=== PATIENT | female | born 1970 | race Caucasian/White ===

== ENCOUNTER → 2017-04-30 | Day surgery (SDC) | payer OTHER ==
[2017-04-30] VITALS (13 sets, daily range): BP systolic 112–120; BP diastolic 56–74; PULSE 65–83; RESP 9–18; O2SAT 95–100
[~2017-04-30] VITALS: Ht 176.5 cm; Wt 96.9 kg
[~2017-04-30] MED LIST: BUPR150T12 PO; Bupivacaine-MPF 0.5% W/EPI 30 mL Inj INJ ONE; CHOL200047 PO; CLIN60LO2 TP; CeFAZolin Inj 2 GM in IV Premix 1 EACH IV ONE; Dexamethasone 4 mg/mL Inj IVPUSH PRN; Dexamethasone 4 mg/mL Inj ONE; EPHEDrine Sulfate 50 mg/mL Inj IVPUSH PRN; EPHEDrine/NS 5 mg/mL 5 mL Syringe ONE; FLUC100T4 PO; HYDR-3740 PO; LEVO50TA6 PO; Lactated Ringer's 1,000 ML IV SCH; Lactated Ringer's 500 ML IV PRN; Lidocaine PF 1% 30 mL Inj INJ ONE; MetoCLOpramide 5 mg/mL 2 mL Inj IVPUSH PRN; Ondansetron 2 mg/mL 2 mL Inj IVPUSH PRN; Ondansetron 2 mg/mL 2 mL Inj ONE; Phenylephrine 10,000 mCg/mL Inj IVPUSH PRN; Propofol 10,000 mCg/mL 20 mL Inj ONE; RANI150T11 PO; ZOV800 PO; fentaNYL-PF 50 mCg/mL 2 mL Inj IVPUSH PRN; fentaNYL-PF 50 mCg/mL 2 mL Inj ONE; fibercon
[2017-04-30] MEDS: Lactated Ringer's 1,000 ML IV SCH ×3 (09:23→13:20)
--- NOTE | 2017-04-30 09:43 | PCM.HPANE ---
Patient Data Date of Service: Apr 30, 2017 Surgeon Admitting Provider: Attending Provider:Marta Colbert DPM Primary Care Physician:Larisa Armstrong Other Provider:Reginaldo Hearn Anesthesia Reason for Visit Contracture Of Joint Left Foot Ht/WT & BMI Height (Feet): 5 Height (Inches): 9.5 Weight (Kilograms): 95.25 Body Mass Index 30.00 Allergies Coded Allergies: No Known Allergies (Verified Allergy, Unknown, 08/02/16) Past Anesthesia History Anesthesia History: Denies:: Abnormal Airway, Anesthesia Reactions, Difficult Intubation, Fam Anesthesia Reaction, Malignant Hyperthermia Diabetes History Hx Diabetes?: No MRSA MRSA: No Medications Hypertension Medication: No Home Meds Incl Beta Gonsalo: No Reported Medications Ranitidine (Zantac)150 Mg Fetdqj021 Mg PO DAILY 04/23/17 Cholecalciferol (Vitamin D3) (Vitamin D3)2,000 Unit Capsule2,000 Unit PO DAILY 04/23/17 Levothyroxine 50 Mcg Hbnsmm34 Mcg PO DAILY Ref 0 04/23/17 Hydrocodone-Acetaminophen 10-325 mg 1 Each Tablet1 Tablet PO Q6H PRN For Pain Ref 0 04/23/17 Fluconazole 100 Mg Cjnsbz722 Mg PO WEEKLY Ref 0 04/23/17 [fibercon] No Conflict Dcvhv996 Mg DAILY 04/23/17 Clindamycin Phosphate (Clindamycin Phosphate Topical)60 Ml Lotion1 Applic TP BID #60 ML Ref 0 04/23/17 Bupropion ER 150 Mg Tablet.er150 Mg PO BID Ref 0 04/23/17 Acyclovir 800 Mg Cli921 Mg PO Q4H PRN outbreak Ref 0 for 10 day course 04/23/17 Discontinued Reported Medications Ranitidine (Zantac)150 Mg Vwljrx682 Mg PO DAILY 02/01/17 Bupropion ER (Wellbutrin SR)150 Mg Tablet.er150 Mg PO BID Ref 0 02/01/17 Diclofenac Gel (Voltaren Gel)100 Gm Tube1 Applic TOPICAL PRN For Pain #1 TUBE 02/01/17 Cholecalciferol (Vitamin D3) (Vitamin D3)2,000 Unit Tablet2,000 Unit PO DAILY 02/01/17 Triamcinolone Acet (Triamcinolone Acetonide Cream)1 Applic/0.25 Gm Cr1 Applic EXT BID #60 GM Ref 0 02/01/17 Pregabalin (Lyrica)225 Mg Hqyjjat255 Mg PO BID 30 Days Ref 0 02/01/17 Levothyroxine 50 Mcg Vwduhc03 Mcg PO DAILY Ref 0 02/01/17 Fluconazole 150 Mg Fmtxwr310 Mg PO ONCE #1 TABLET Ref 0 02/01/17 [fibercon] No Conflict Euiwg261 Mg DAILY 02/01/17 Duloxetine (Cymbalta)20 Mg Dytxvuc16 Mg PO DAILY Ref 0 02/01/17 Clobetasol Propionate/Emoll (Clobetasol Emollient 0.05% Crm)15 Gm Cream..g.1 Appl TOP BID #1 TUBE 02/01/17 Clindamycin Phosphate (Clindamycin Phosphate Topical)60 Ml Lotion1 Applic TP BID #60 ML Ref 0 02/01/17 Acyclovir 800 Mg Hjl151 Mg PO Q4H PRN outbreak Ref 0 for 10 day course 02/01/17 Buspirone 10 Mg Skhuwh42 Mg PO DAILY Ref 0 02/01/17 History History of ENT Problems?: Yes HEENT History: Positive for:: Sinus Problem (environmental allergies) Denies:: Abnormal Airway Cataracts Difficult Intubation Glaucoma Hearing Problem Denture Type: None Teeth Condition: Within Normal Limits Hx of Heart Problems?: No Cardiovascular History: Denies:: Congestive Heart Failure Heart Murmur Hypertension Valvular Heart Disease Hx of Respiratory Problem?: Yes Respiratory History: Positive for:: Asthma (mild-intermittent) Dyspnea ([place]) Use of C-PAP Machine Use of Inhalers / NEBS Denies:: Oxygen Administration Pneumonia Tuberculosis Hx Neurologic Problems?: No Neurological History: Positive for:: Headaches (rarely) Denies:: CVA Dementia Multiple Sclerosis Parkinson's Disease Seizures Hx of GI Problems?: No Hx of Problems?: No Genitourinary History: Denies:: Kidney Stones Urinary Tract Infection HX of Peritoneal Dialysis: No Female Hx: Denies:: Currently (hx of tubal) Problems with Breasts? Skin History: Positive for:: History Skin Disorders? (nevus right great toe- current admission problem) Denies:: Pressure Ulcers Hx Musculoskeletal Problems?: Yes Musculoskeletal History: Positive for:: Fibromyalgia Musculoskeletal Trauma (left foot contracture current admission problem, ) Osteoarthritis Denies:: Back Injury Joint Replacement Rheumatoid Arthritis Hx of Psycho/Social Problems?: Yes Psycho Social History: Positive for:: Anxiety Hx Depression Hx Surgeries?: Yes (DX LAP X2,C/S X2,BTL,LT FOOT RPR,LT FOOT HDWRE REMOVAL) Hx Any Other Health Problems?: Yes Other History: Positive for:: Thyroid Disease Denies:: Cancer Endocrine Disease Hospitalization History Blood Transfusions: Positive for:: Accept Blood Products? Denies:: Blood Transfusions Hx Diabetes: No Hx Alcohol Use: NoHx Substance Use: No Smoking Status: Never Smoker Have You Smoked inLast 12 mo: No Stop/Bang Treated for Sleep Apnea?: Yes Do You Have a CPAP Machine?: Yes P-Blood Pressure: treated: Yes B- Body Mass Index > 35 kg/m2: No A- Age over 50: Yes N- Neck Large Circumference: No G- Gender Male: No DAILY Risk Assessment: High Risk, =/>3 Yes Risk Assessment Category Category 1A: Patient has history of documented sleep apnea, and HAS NOT received any narcotic, sedative or anesthesia administration during this stay. Category 1B: Patient has history of documented sleep apnea, and HAS received any narcotic , sedative or anesthesia administration during this stay Category 2: Patient has SUSPECTED Obstructive Sleep Apnea, and HAS received any narcotic , sedative or anesthesia administration during this stay. Category 3: Patient has SUSPECTED Obstructive Sleep Apnea and HAS NOT received narcotic, sedative or anesthesia administration during this stay. Category 4: Outpatient in Procedural Areas with known sleep apnea or who screen positive for High Risk via the STOP/BANG questionnaire. Exam Exam Vital Signs 106/61, HR 64, RR 12 General Appearance: Alert, Oriented X3, Cooperative, No Acute Distress HEENT/AIRWAY: MP 2 Lungs: Clear to Auscultation Heart: Regular Rate/Rhythm, No Murmurs/Rubs/Gallops Meds/Labs/Diagnostics Admission Meds Current Medications Lactated Ringer's (Lr) 1,000 ml @ 120 mls/hr Q8H20M IV Last administered on t 09:23; Start 04/30/17 at 05:00; Stop 04/30/17 at 13:19 Plan Impression Patient chart reviewed, patient interviewed and anesthestic plan with risks, benefits, and alternatives discussed, and informed consent obtained. NPO per Anesth. Guidelines: Yes ASA Physical Status: ASA2 Mod Systemic Disease Anesthetic Plan: GA Bene/Risks/Altern/Consents: Yes HP Complete Prior to Induction: Yes Jd Dietrich DO Apr 30, 2017 09:43
[2017-04-30] MEDS: HYDROmorphone 1 mg/mL Inj IVPUSH PRN ×3 (12:31→13:07)
--- NOTE | 2017-04-30 12:31 | PCM.PODPO ---
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 Surgeon Surgeon: Marta Colbert DPM Assistants: None Indication for Procedure Long standing pain, jamming, alteration of gait due to limitation of range of motion. Findings Severely degenerated joint cartilage, metatarsal head and phalangeal base. Details of Procedure The patient was identified in the preoperative holding area and brought back to the operating room. She was placed on the operating table in supine position. The timeout protocol was completed. The patient's general anesthesia was initiated. Both feet were prepped and draped in usual aseptic manner. A sub- lesional local anesthetic was injected on the right great toe, lateral surface. The irregular nevus was excised in a 3-1 fashion. The total nevus size was 6 mm x 3 mm in size. The subcutaneous tissue and skin were reapproximated with 4- 0 Prolene. The skin biopsy sample was sent for pathologic examination. The dressing consisted of a Band-Aid. The left foot was anesthetized in a Hwang block. The previous dorsomedial first metatarsophalangeal joint area incision was excised, then deepened to the joint capsule. Ample scar tissue was encountered. The capsule was completely adhered to the first metatarsal head and proximal phalangeal base. The cartilage was found to be almost completely eroded off of both joint surfaces. There was no excessive joint fluid. Using the Arthrosurface technique for insertion of a total MTP joint implant, the guidewire was placed in the center of the metatarsal head and down the metatarsal shaft. The metatarsal shaft was drilled, then the cartilage reamed off of the metatarsal head and dorsal lip. A spacer trial component was used to determine size of the implants to be placed. The recipient screw was placed into the metatarsal and the metal implant attached and tamped according to the technique guide. The base of the proximal phalanx was drilled along a guidewire down the center of the phalanx, drilled, then reamed. The distal component was sized and placed into the receiving screw without any complications. The range of motion improved to 45 of dorsiflexion and 30 of plantarflexion once both components were placed. All excessive bone was removed with the rongeur. The wound was irrigated with normal saline, range of motion checked, sesamoid motion confirmed. Fluoroscopic guidance was used throughout the case. No tourniquet was necessary. Incisional epinephrine was used in the local anesthetic. The capsular tissue was closed with 3-0 Vicryl and skin with 3-0 Prolene. Dressing consisted of Lockett silk, normal saline moistened gauze, Kerlix, and Coban. The patient was weaned off of general anesthesia and taken to the recovery room with vital signs stable and the vascular status to the left foot intact, as well as the right great toe. Grafts, Implants: Implants-See Implant Record Complications There were no periprocedural complications identified. Condition Stable Anesthetic Administered: GA Drains: None Catheters: None Output, Estimated Blood Loss: 10 (ml) Blood Admin during surgery: No Surgical Cast or Splint: Post-op Boot Surgical Specimen Removed: Yes Specimen sent to Pathology: Yes Surgical Specimen description: Right great toe nevus Post Operative Plan Weightbearing as tolerated in a postoperative shoe. The postoperative dressing on the left foot is not to be removed. The Band-Aid needs to be removed on the right great toe every 48 hours and replaced. The patient has postoperative by mouth pain medication for use at home. Her next postop appointment is already been scheduled in my office in 1 week. Marta Colbert DPM Apr 30, 2017 12:31
--- NOTE | 2017-05-01 11:36 | PATH ---
SURGICAL PATHOLOGY Attending Physician:Marta Colbert CASE STATUS: Signed Out PATIENT NAME: HARRY DUMONT PID: [id number] : 1970 DATE COLLECTED:04/30/2017 19:45 SPECIMEN: Skin, biopsy CLINICAL HISTORY: LEFT GREAT TOE METALSO PHALANGEAL JOINT CONTRACURE, RIGHT GREAT TOE NEVUS 1). RIGHT GREAT TOE NEVUS, RIGHT GREAT LATERAL STITCH IS 12 O'CLOCK FINAL DIAGNOSIS: 1.SKIN EXCISION, RIGHT GREAT TOE: INTRADERMAL MELANOCYTIC NEVUS, NEGATIVE FOR ATYPIA, TOTALLY EXCISED. ICD10 D22.71 GROSS DESCRIPTION: The specimen is received in one formalin filled container labeled with the patient's name, sublabeled "right great toe nevus" and consists of a linares-sterling slightly dome-shaped ellipse of skin which measures 0.9 x 0.5 x 0.2 CM centrally located on the epidermal surface is a 0.3 x 0.2 CM light sterling slightly raised and a mottled area. One tip of the ellipse is tagged with a suture designated 12:00. Specimen is oriented with suture at 12:00 and thinking will go as follows: 12-3 yellow, 3-6 blue, 6-9-12 black. The tips are submitted in cassette A. The remaining sample is sectioned into 2 pieces and entirely submitted in cassette B. 04/30/2017DC MICRO DESCRIPTION: See diagnosis. ICD-9 CODES: CPT CODES: 1: 22601 Electronically Signed Out Esequiel Benavides MD [facility] Pathology [facility] [address], [place] [address] Technical component performed at [facility], [facility] [address], [place], [address]
== END | disposition home or self-care (01) ==
LOC: SAS 09:18
PROVIDERS: ATTEND Podiatrist
DX: M24.575 Contracture, left foot (principal); D22.71 Melanocytic nevi of right lower limb, including hip; J45.909 Unspecified asthma, uncomplicated; R51 Headache; M79.7 Fibromyalgia; M19.90 Unspecified osteoarthritis, unspecified site; F41.9 Anxiety disorder, unspecified; Z79.899 Other long term (current) drug therapy
CPT/HCPCS: 28291; 76000; C1776; J0690; J1100; J1170; J1885; J2175; J2250; J2405; J3010; J7120